=== PATIENT | male | born 1970 | race American Indian/Alaskan Native ===

== ENCOUNTER 2017-11-18 08:00 | Outpatient (CLI) | payer OTHER ==
[2017-11-18 19:17] LABS: BILIRUBIN,URINE NEGATIVE (NEGATIVE); GLUCOSE, URINE (UA) NEGATIVE (NEGATIVE); KETONES,URINE (UA) NEGATIVE (NEGATIVE); LEUKOCYTE ESTERASE, URINE NEGATIVE (NEGATIVE); NITRITE,URINE NEGATIVE (NEGATIVE); OCCULT BLOOD,URINE NEGATIVE (NEGATIVE); PROTEIN,URINE NEGATIVE (NEGATIVE); UROBILINOGEN,URINE 0.2 (NORMAL) E.U./dL (NORMAL)
[2017-11-18 19:21] LABS: BASOPHILS # (AUTO) 0.1 10^3/uL (0.0-0.1); BASOPHILS % (AUTO) 0.6 %; EOSINOPHILS # (AUTO) 0.2 10^3/uL (0.0-0.7); EOSINOPHILS % (AUTO) 2.3 %; HGB - HEMOGLOBIN 14.3 g/dL (14.0-18.0); LYMPHOCYTES # (AUTO) 1.8 10^3/uL (1.5-3.5); LYMPHOCYTES % (AUTO) 21.6 %; MEAN CORPUSCULAR HEMOGLOBIN 28.1 pg (27.0-31.0); MEAN CORPUSCULAR HGB CONC 32.4 g/dL (32.0-36.0); MEAN CORPUSCULAR VOLUME 86.7 fL (80.0-94.0); MONOCYTES # (AUTO) 0.8 10^3/uL (0.0-1.0); MONOCYTES % (AUTO) 9.4 %; NEUTROPHILS # (AUTO) 5.4 10^3/uL (1.5-6.6); NEUTROPHILS % (AUTO) 66.1 %; PLT - PLATELET COUNT 216 10^3/uL (130-450); RED BLOOD COUNT 5.11 10^6/uL (4.70-6.10); RED CELL DISTRIBUTION WIDTH 15.4 % (12.0-15.0); WHITE BLOOD COUNT 8.1 x10^3/uL (4.8-10.8)
[2017-11-18 19:30] LABS: CLARITY,URINE CLEAR (CLEAR)
[2017-11-18 19:31] LABS: BACTERIA,URINE None Seen /HPF (None Seen); RBC,URINE None Seen /HPF (0-5); SQUAMOUS EPITHELIAL CELL,UR NONE SEEN (<= Few)
[2017-11-18 19:35] LABS: ALBUMIN 4.5 g/dL (3.2-5.5); ALBUMIN/GLOBULIN RATIO 1.6 (1.0-2.2); BILIRUBIN,TOTAL 0.7 mg/dL (0.2-1.0); CALCIUM 9.5 mg/dL (8.5-10.3); CREATININE 1.2 mg/dL (0.6-1.2); TOTAL PROTEIN 7.4 g/dL (6.7-8.2); URIC ACID 5.1 mg/dL (2.6-7.2)
[2017-11-20 17:56] LABS: COMPLEMENT COMPONENT C3C 148 mg/dL (82-185); COMPLEMENT COMPONENT C4C 24 mg/dL (15-53)
== END 2017-11-18 08:01 | disposition home or self-care (01) ==
LOC: LAB.WCP 08:00
PROVIDERS: ATTEND Internal Medicine Rheumatology
DX: M10.9 Gout, unspecified (principal); E76.8 Other disorders of glucosaminoglycan metabolism
CPT/HCPCS: 36415; 80053; 81001; 84550; 85025; 86160

== ENCOUNTER 2017-12-21 13:47 | Outpatient (CLI) | payer OTHER | END 2017-12-21 13:48 | disposition home or self-care (01) | LOC: SC 13:47 | PROVIDERS: ATTEND Internal Medicine Pulmonary Disease | DX: G47.30 Sleep apnea, unspecified (principal); G47.10 Hypersomnia, unspecified; R06.83 Snoring; G47.8 Other sleep disorders | CPT/HCPCS: 99203; 99212 ==

== ENCOUNTER 2018-02-10 20:33 | Outpatient (CLI) | payer OTHER | END 2018-02-10 20:34 | disposition home or self-care (01) | LOC: SC 20:33 | PROVIDERS: ATTEND Internal Medicine Pulmonary Disease | DX: G47.33 Obstructive sleep apnea (adult) (pediatric) (principal); G47.61 Periodic limb movement disorder | CPT/HCPCS: 95810 ==

== ENCOUNTER 2018-02-24 14:03 | Outpatient (CLI) | payer OTHER | END 2018-02-24 14:04 | disposition home or self-care (01) | LOC: SC 14:03 | PROVIDERS: ATTEND Nurse Practitioner Family | DX: G47.33 Obstructive sleep apnea (adult) (pediatric) (principal) | CPT/HCPCS: 99212; 99214 ==

== ENCOUNTER 2018-05-19 11:14 | Outpatient (CLI) | payer OTHER ==
[2018-05-19 19:21] LABS: BASOPHILS # (AUTO) 0.1 10^3/uL (0.0-0.1); BASOPHILS % (AUTO) 0.7 %; EOSINOPHILS # (AUTO) 0.3 10^3/uL (0.0-0.7); EOSINOPHILS % (AUTO) 3.8 %; HGB - HEMOGLOBIN 13.9 g/dL (14.0-18.0); LYMPHOCYTES # (AUTO) 1.8 10^3/uL (1.5-3.5); LYMPHOCYTES % (AUTO) 26.5 %; MEAN CORPUSCULAR HGB CONC 32.5 g/dL (32.0-36.0); MEAN CORPUSCULAR VOLUME 89.2 fL (80.0-94.0); MEAN PLATELET VOLUME 9.4 fL (7.4-11.4); MONOCYTES # (AUTO) 0.6 10^3/uL (0.0-1.0); MONOCYTES % (AUTO) 8.3 %; NEUTROPHILS # (AUTO) 4.1 10^3/uL (1.5-6.6); NEUTROPHILS % (AUTO) 60.7 %; PLT - PLATELET COUNT 224 10^3/uL (130-450); RED BLOOD COUNT 4.81 10^6/uL (4.70-6.10); RED CELL DISTRIBUTION WIDTH 15.2 % (12.0-15.0); WHITE BLOOD COUNT 6.8 x10^3/uL (4.8-10.8)
[2018-05-19 19:25] LABS: ALBUMIN 4.8 g/dL (3.2-5.5); ALBUMIN/GLOBULIN RATIO 1.7 (1.0-2.2); BILIRUBIN,TOTAL 0.6 mg/dL (0.2-1.0); CALCIUM 9.5 mg/dL (8.5-10.3); CREATININE 1.2 mg/dL (0.6-1.2); TOTAL PROTEIN 7.6 g/dL (6.7-8.2); URIC ACID 4.8 mg/dL (2.6-7.2)
== END 2018-05-19 11:15 ==
LOC: LAB.WCP 11:14
PROVIDERS: ATTEND Internal Medicine Rheumatology
DX: M10.9 Gout, unspecified (principal); R76.8 Other specified abnormal immunological findings in serum
CPT/HCPCS: 36415; 80053; 84550; 85025; 85651

== ENCOUNTER 2018-05-24 14:24 | Outpatient (CLI) | payer OTHER | END 2018-05-24 14:25 | disposition home or self-care (01) | LOC: SC 14:24 | PROVIDERS: ATTEND Internal Medicine Pulmonary Disease | DX: G47.33 Obstructive sleep apnea (adult) (pediatric) (principal) | CPT/HCPCS: 99212; 99213 ==

== ENCOUNTER 2018-11-25 12:52 | Outpatient (CLI) | payer OTHER ==
--- NOTE | 2018-11-26 11:52 | MRI Report ---
Reason: PAIN IN LEFT KNEE Procedure Date: 11/25/2018 Accession Number: [id number] / [id number] Procedure: MRI - Knee LT W/O CPT Code: FULL RESULT: EXAM: LEFT KNEE MRI WITHOUT CONTRAST EXAM DATE: 11/25/2018 01:57 PM. CLINICAL HISTORY: Left knee pain. COMPARISON: None. TECHNIQUE: Multiplanar, multisequence T1-weighted and fluid-sensitive sequences of the knee without contrast. Other: None. FINDINGS: Bones: There is a small focus of subchondral edema in the femoral trochlea. There is mild overlying thinning of the hyaline cartilage. There are similar findings in the medial patella facet. There are no visible fractures. Articular Cartilage: Medial and lateral compartment cartilage appear unremarkable. Medial Meniscus: There is an oblique undersurface tear of the junction of the posterior horn and body of the medial meniscus. Lateral Meniscus: The lateral meniscus is intact. Cruciate Ligaments: The anterior and posterior cruciate ligaments are intact. Collateral Ligaments: The medial collateral and lateral collateral ligamentous structures are intact. Tendons: The quadriceps, patellar, semimembranosus, and popliteus tendons are unremarkable. Musculature: No edema or fatty atrophy. Other: There is a small joint effusion. No popliteal cyst. No loose bodies. The medial and lateral retinacula are intact. The subcutaneous tissues and fat pads are unremarkable. IMPRESSION: 1. Mild patellofemoral joint cartilage erosion. 2. Small joint effusion. 3. Oblique undersurface tear at the junction of the posterior horn and body of the medial meniscus. [facility]
== END 2018-11-25 12:53 | disposition home or self-care (01) ==
LOC: DI 12:52
DX: M94.8X6 Other specified disorders of cartilage, lower leg (principal); M25.462 Effusion, left knee; S83.242A Other tear of medial meniscus, current injury, left knee, initial encounter

== ENCOUNTER 2018-12-15 04:32 | Outpatient (CLI) | payer OTHER | END 2018-12-15 04:33 | disposition short-term general hospital (02) | LOC: EMS 04:32 | PROVIDERS: ATTEND Surgery | DX: R07.9 Chest pain, unspecified (principal); R61 Generalized hyperhidrosis; R53.1 Weakness | CPT/HCPCS: A0425; A0433 ==

== ENCOUNTER 2019-01-18 08:04 | Outpatient (CLI) | payer OTHER ==
--- NOTE | 2019-01-18 14:24 | CONSULTATION NOTE ---
Information from patient questionnaire entered by Iona Shoemaker. I have reviewed and concur with the information entered by Iona Shoemaker. This document represents the service I personally performed and the decisions made by me, Bria Serrano MD, [facility]. - History of Present Illness HPI: Mr. Panchal returned today for six month follow-up of nasal CPAP therapy. He was diagnosed to have mild (AHI = 14.6) obstructive sleep apnea-hypopnea syndrome. The patient wears a full face mask. He reports using the device nightly and all through the night. The compliance report shows usage in 174 nights out of the past 180 nights, averaging 6.3 hours a night. He complained of no particular problem with the device such as soreness on the face, dry nose, epistaxis, nasal congestion or headache. He thinks that the pressure is comfortable. On the CPAP therapy he notices improvement in his sleep quality, and that he wakes up feeling fresher in the morning and more awake/alert during the day. His notices light snore through the CPAP. Equipment obtained from: [employer] Mask style: Full face - Subjective Initial [place] Sleepiness Scale score: 18 Current [place] Sleepiness Scale score: 11 - Allergies/Medications Allergies and home medications reviewed: Yes - Impression 1. Obstructive Sleep Apnea-Hypopnea Syndrome, mild, with the patient doing well on nasal CPAP therapy. He has excellent compliance and significant clinical improvement. The current pressure appears effective and comfortable. Overall, he is very satisfied with treatment and plans to continue with it long-term. Because he still snores, I will adjust the pressure range slightly. - Plan Plan: 1. Set the autoCPAP at 6 - 12 cmH2O. 2. Try Respironics DreamWear nasal cushion mask and ResMed N30i mask. 3. Establish care with a sleep center in [place], [place]. I spent 100% of this 15 minute visit face to face with the patient with greater than 50% of this was spent time counseling the patient and coordination of care.
== END 2019-01-18 08:05 | disposition home or self-care (01) ==
LOC: SC 08:04
PROVIDERS: ATTEND Internal Medicine Pulmonary Disease
DX: G47.33 Obstructive sleep apnea (adult) (pediatric) (principal)
CPT/HCPCS: 99212; 99213